=== PATIENT | female | born 2000 | race Caucasian/White ===

== ENCOUNTER 2021-07-22 13:38 | Emergency (ER) | payer BC, OTHER | END 2021-07-22 16:43 | disposition home or self-care (01) | LOC: CSHERS 13:38 | DX: B35.9 Dermatophytosis, unspecified (principal) | CPT/HCPCS: 93005 ==

== ENCOUNTER 2021-08-11 13:59 | Outpatient (CLI) | payer BC | END 2021-08-11 14:00 | disposition home or self-care (01) | LOC: CSHULT 13:59 | PROVIDERS: ATTEND Student in an Organized Health Care Education/Training Program | DX: R59.0 Localized enlarged lymph nodes (principal) | CPT/HCPCS: 76536 ==